=== PATIENT | female | born 1960 | race Caucasian/White ===

== ENCOUNTER 2021-08-21 08:41 | Emergency (ER) | payer OTHER ==
[~2021-08-21] VITALS: Ht 172.7 cm; Wt 110.7 kg
[2021-08-21 09:16] LABS: HEMOGLOBIN 14.4 gm/dl (12.3-15.3); RED BLOOD COUNT 5.02 M/UL (4.00-5.10); WHITE BLOOD COUNT 8.3 K/UL (4.5-11.0)
[2021-08-21 09:38] LABS: BUN/CREATININE RATIO 17 (0-10)
== END 2021-08-21 11:43 | disposition home or self-care (01) ==
LOC: ER1 08:41
PROVIDERS: Family Medicine
DX: R07.9 Chest pain, unspecified (principal); R53.83 Other fatigue; R05.9 Cough, unspecified
CPT/HCPCS: 71045; 80053; 82550; 82553; 83874; 84439; 84443; 84484; 85025; 93005; 99285